=== PATIENT | male | born 1995 | race African-American/Black ===

== ENCOUNTER 2020-01-20 17:39 | Emergency (ER) | payer OTHER | END 2020-01-20 18:03 | disposition home or self-care (01) | LOC: ERS 17:39 | DX: R11.2 Nausea with vomiting, unspecified (principal); F17.210 Nicotine dependence, cigarettes, uncomplicated | CPT/HCPCS: 99283 ==

== ENCOUNTER 2022-01-02 21:25 | Emergency (ER) | payer SELFPAY | END 2022-01-02 22:10 | disposition home or self-care (01) | LOC: ERS 21:25 | DX: U07.1 COVID-19 (principal); F17.210 Nicotine dependence, cigarettes, uncomplicated | CPT/HCPCS: 99283; U0003; U0005 ==

== ENCOUNTER 2022-05-22 11:46 | Emergency (ER) | payer SELFPAY ==
[2022-05-22] MEDS ORDERED: Ibuprofen 800 MG TAB ONE (13:57)
[2022-05-22] MEDS ORDERED: Ondansetron ODT 4 MG TAB ONE (13:57)
== END 2022-05-22 14:20 | disposition home or self-care (01) ==
LOC: ERS 11:46
DX: B34.9 Viral infection, unspecified (principal)
CPT/HCPCS: 87081; 87430; 87804; 99283; Q0162

== ENCOUNTER 2022-06-13 16:20 | Emergency (ER) | payer BC, SELFPAY ==
[2022-06-13] MEDS ORDERED: cefTRIAXone\\ROCEPHIN 500 MG VIAL ONE (17:27)
[2022-06-13] MEDS ORDERED: Azithromycin 250 MG TAB ONE (17:27)
[2022-06-13] MEDS ORDERED: Lidocaine 1% MPF 2 ML VIAL ONE (17:28)
[2022-06-14 11:06] LABS: Chlam.trachomatis by PCR,Urine Not Detected (NotDetected)
== END 2022-06-13 17:48 | disposition home or self-care (01) ==
LOC: ERS 16:20
DX: R30.0 Dysuria (principal)
CPT/HCPCS: 87491; 87591; 96372; 99283; J0696

== ENCOUNTER 2022-10-17 09:09 | Emergency (ER) | payer BC, OTHER ==
[2022-10-17] MEDS ORDERED: Acetaminophen 500 MG TAB ONE (09:35)
[2022-10-17 10:12] LABS: #Eosinphils 0.2 thou/uL (0.0-0.7); #Lymphocytes 1.8 thou/uL (1.20-3.40); #Monocytes 0.6 thou/uL (0.11-0.59); #Neutrophils 1.9 thou/uL (1.40-6.50); %Basophils 0.6 % (0.0-1.0); %Eosinophils 3.7 % (0.0-10.0); %Lymphocytes 39.5 % (21.0-51.0); %Neutrophils 43.3 % (42.0-75.0); Hemoglobin 14.6 g/dL (14.0-18.0); Mean Corpuscular HGB CONC 33.2 g/dL (32.0-36.0); Mean Corpuscular Hemoglobin 28.9 pg (27.0-31.0); Mean Corpuscular Volume 87.1 fl (78.0-98.0); Mean Platelet Volume 7.8 fL (7.4-10.4); Platelet Count 192 10x3/uL (130-400); RBC Distribution Width 12.2 % (11.5-14.5); Red Blood Cell (RBC) Count 5.03 mill/uL (4.70-6.10); White Blood Cell (WBC) Count 4.5 10x3/uL (4.8-10.8)
[2022-10-17 10:29] LABS: ALT (SGPT) 37 U/L (8-55); AST (SGOT) 22 U/L (5-34); Albumin 3.8 g/dL (3.5-5.0); Alkaline Phosphatase 43 U/L (40-110); Anion Gap 9 mmol/L (10-20); BUN (Urea Nitrogen) 12 mg/dL (8.9-20.6); Bilirubin, Total 0.6 mg/dL (0.2-1.2); Calc. Creatinine Clearance 0 mL/min (70-130); Calcium 8.6 mg/dL (7.8-10.44); Carbon Dioxide 25 mmol/L (22-29); Chloride 107 mmol/L (98-107); Estimated GFR 116; Globulin 2.3 g/dL (2.4-3.5); Glucose 105 mg/dL (70-105); Potassium 3.4 mmol/L (3.5-5.1); Protein, Total 6.1 g/dL (6.0-8.3); Sodium 138 mmol/L (136-145)
== END 2022-10-17 11:39 | disposition home or self-care (01) ==
LOC: ERS 09:09
DX: R07.9 Chest pain, unspecified (principal); E87.6 Hypokalemia; D72.819 Decreased white blood cell count, unspecified; Z87.891 Personal history of nicotine dependence
CPT/HCPCS: 36415; 71045; 80053; 84484; 85025; 93005